=== PATIENT | male | born 1945 | race Caucasian/White ===

== ENCOUNTER 2017-05-23 20:12 | Emergency (ER) | payer OTHER ==
[~2017-05-23] VITALS: Ht 162.6 cm; Wt 79.4 kg
[2017-05-23] MEDS ORDERED: DIGOXIN125 MCG (21:08)
[2017-05-23] MEDS ORDERED: ASPIR 8181 MG (21:08)
[2017-05-23] MEDS ORDERED: COZAAR50 MG (21:35)
[2017-05-23] MEDS ORDERED: CARVEDILOL12.5 MG (21:35)
[2017-05-23] MEDS ORDERED: FUROSEMIDE20 MG (21:36)
[2017-05-23] MEDS ORDERED: ISOSORBIDE MONO20 MG (21:36)
[2017-05-23] MEDS ORDERED: CLONAZEPAM0.5 MG (21:36)
== END 2017-05-23 22:32 | disposition home or self-care (01) ==
LOC: ER 20:12
DX: K06.8 Other specified disorders of gingiva and edentulous alveolar ridge (principal); Z98.811 Dental restoration status